=== PATIENT | female | born 1990 | race Caucasian/White ===

== ENCOUNTER 2017-04-17 21:40 | Emergency (ER) | payer MEDICARE, MEDICAID ==
[2017-04-17 21:54] VITALS: BP 125/76
--- NOTE | 2017-04-17 22:15 | EDM.PDOC ---
[id number] INFECTION Time Seen by Provider: 04/17/17 21:40 Source of Information: Reports: Patient History Limitations: Reports: No Limitations - History of Present Illness INITIAL COMMENTS - FREE TEXT/NARRATIVE: 26-year-old female was washing her hair earlier today and her ear on the right side has been plugged since. No significant pain, no fevers or chills. Onset: Today, Sudden (7 hours ago) - Related Data Allergies Allergy/AdvReac Type Severity Reaction Status Date / Time fluticasone [From Flonase] Allergy Nose Bleeds Verified 09/03/16 21:34 Home Meds: Home Meds medroxyPROGESTERone Acetate [Depo-Provera] 04/17/17 [History] Past Medical History - Past Health History Medical/Surgical History: Denies Medical/Surgical History - Past Surgical History HEENT Surgical History: Reports: Myringotomy w Tube(s), Other (See Below) Social & Family History - Tobacco Use Smoking Status *Q: Never Smoker - Caffeine Use Caffeine Use: Reports: Soda - Alcohol Use Days Per Week of Alcohol Use: 0 - Recreational Drug Use Recreational Drug Use: No ED ROS ENT - Review of Systems Review Of Systems: See Below Constitutional: Denies: Fever HEENT: Denies: Rhinitis Respiratory: Denies: Shortness of Breath, Cough GI/Abdominal: Denies: Nausea, Vomiting Neurological: Reports: No Symptoms. Denies: Headache ED EXAM, ENT - Physical Exam Exam: See Below Exam Limited By: No Limitations General Appearance: Alert, No Apparent Distress Ears: TM Obscured by Cerumen (Bilaterally) Head: Atraumatic Respiratory/Chest: No Respiratory Distress Course - Vital Signs Last Recorded V/S: Last Vital Signs Temp 97.4 F 04/17/17 21:53 Pulse 88 04/17/17 21:53 Resp 15 04/17/17 21:53 BP 125/76 04/17/17 21:53 Pulse Ox 99 04/17/17 21:53 - Re-Assessments/Exams Free Text/Narrative Re-Assessment/Exam: 04/17/17 22:14 Both ear canals were irrigated and flushed and all cerumen removed. The underlying TMs look healthy, and her symptoms resolved. Departure - Departure Time of Disposition: 22:37 Disposition: Home, Self-Care 01 Condition: Good Clinical Impression: Bilateral impacted cerumen - Discharge Information Instructions: Earwax Buildup Referrals: Steven Celaya MD [Primary Care Provider] - Forms: ED Department Discharge Care Plan Goals: Keep ears clean, recheck if worsening such as pain and keep your ENT appointment as scheduled.
== END 2017-04-17 22:37 | disposition home or self-care (01) ==
LOC: JP.ED 21:40
DX: H61.23 Impacted cerumen, bilateral (principal); Z96.22 Myringotomy tube(s) status; Z79.899 Other long term (current) drug therapy; Z88.8 Allergy status to other drugs, medicaments and biological substances
CPT/HCPCS: 69210; 99282; 99283-25

== ENCOUNTER 2017-10-27 23:56 | Emergency (ER) | payer MEDICARE, MEDICAID ==
[2017-10-28 00:07] VITALS: BP 145/90
--- NOTE | 2017-10-28 00:31 | EDM.PDOC ---
ED HPI GENERAL MEDICAL PROBLEM - General Chief Complaint: General Stated Complaint: COLD Time Seen by Provider: 10/28/17 00:10 Source of Information: Reports: Patient History Limitations: Reports: No Limitations - History of Present Illness INITIAL COMMENTS - FREE TEXT/NARRATIVE: 27-year-old female with a hoarse voice, intermittent cough and low-grade fever for the past 2 days. Her coworker has a cold, but she told her today that it turned into "pneumonia" so the patient wanted to be checked as well. No nausea or vomiting. Scratchy throat but not sore, her ears feel plugged but no significant rhinorrhea. Onset: Gradual (Over the past 48 hours) Severity: Mild Associated Symptoms: Reports: Cough, Fever/Chills, Malaise. Denies: Headaches, Shortness of Breath - Related Data Allergies Allergy/AdvReac Type Severity Reaction Status Date / Time fluticasone [From Flonase] Allergy Nose Bleeds Verified 09/03/16 21:34 Home Meds: Home Meds medroxyPROGESTERone Acetate [Depo-Provera] 150 mg IM Q3M 04/17/17 [History] Past Medical History - Past Health History Medical/Surgical History: Denies Medical/Surgical History - Past Surgical History HEENT Surgical History: Reports: Adenoidectomy, Myringotomy w Tube(s), Other ( See Below) Social & Family History - Family History Family Medical History: Noncontributory - Tobacco Use Smoking Status *Q: Never Smoker - Caffeine Use Caffeine Use: Reports: Coffee, Soda - Alcohol Use Days Per Week of Alcohol Use: 0 - Recreational Drug Use Recreational Drug Use: No ED ROS GENERAL - Review of Systems Review Of Systems: See Below Constitutional: Reports: Fever, Chills, Malaise. Denies: Weakness HEENT: Reports: Ear Pain, Throat Pain. Denies: Rhinitis Respiratory: Reports: Cough. Denies: Shortness of Breath Cardiovascular: Denies: Chest Pain GI/Abdominal: Denies: Abdominal Pain, Nausea, Vomiting Skin: Reports: No Symptoms Neurological: Denies: Headache ED EXAM, GENERAL - Physical Exam Exam: See Below Exam Limited By: No Limitations General Appearance: Alert, No Apparent Distress Ears: Other (Some clear fluid behind the left tympanic membrane, no inflammation ) Nose: Normal Inspection Throat/Mouth: Other (Mild pharyngeal erythema is present) Head: Atraumatic Neck: No: Lymphadenopathy (R), Lymphadenopathy (L) Respiratory/Chest: No Respiratory Distress, Lungs Clear Neurological: Alert, Oriented Skin Exam: Warm, Dry Course - Vital Signs Last Recorded V/S: Last Vital Signs Temp 99.4 F 10/28/17 00:07 Pulse 117 H 10/28/17 00:07 Resp 18 10/28/17 00:07 BP 145/90 H 10/28/17 00:07 Pulse Ox 97 10/28/17 00:07 - Re-Assessments/Exams Free Text/Narrative Re-Assessment/Exam: 10/28/17 00:29 Explained to the patient that this is classic for a viral upper respiratory infection, especially with the hoarseness of her voice and scratchy throat. I offered to check her for influenza A but she declined. No treatment is needed, she'll return if worsening. Departure - Departure Time of Disposition: 00:36 Disposition: Home, Self-Care 01 Condition: Good Clinical Impression: Viral upper respiratory infection - Discharge Information Instructions: Upper Respiratory Infection, Adult Referrals: Steven Celaya MD [Primary Care Provider] - Forms: ED Department Discharge Care Plan Goals: Rest, fluids, cold medication if needed and increase activity as tolerated. Return if worsening such as persistent shortness of breath.
== END 2017-10-28 00:37 | disposition home or self-care (01) ==
LOC: JP.ED 23:56
DX: J06.9 Acute upper respiratory infection, unspecified (principal); Z88.8 Allergy status to other drugs, medicaments and biological substances
CPT/HCPCS: 99282; 99283